=== PATIENT | male | born 1990 | race Two or more races ===

== ENCOUNTER 2021-09-10 23:48 | Emergency (ER) | payer OTHER, SELFPAY ==
[2021-09-11] MEDS ORDERED: Sodium Chloride 0.9% 1,000 ML ONE (00:56)
[2021-09-11 01:13] LABS: #Eosinphils 0.1 thou/uL (0.0-0.7); #Lymphocytes 2.2 thou/uL (1.20-3.40); #Monocytes 0.5 thou/uL (0.11-0.59); #Neutrophils 2.8 thou/uL (1.40-6.50); %Basophils 0.8 % (0.0-1.0); %Eosinophils 0.9 % (0.0-10.0); %Lymphocytes 38.7 % (21.0-51.0); %Monocytes 9.7 % (0.0-10.0); %Neutrophils 49.9 % (42.0-75.0); Hemoglobin 16.2 g/dL (14.0-18.0); Mean Corpuscular HGB CONC 32.5 g/dL (32.0-36.0); Mean Corpuscular Hemoglobin 30.1 pg (27.0-31.0); Mean Corpuscular Volume 92.6 fL (78.0-98.0); Mean Platelet Volume 8.3 fL (7.4-10.4); Platelet Count 311 thou/uL (130-400); RBC Distribution Width 11.7 % (11.5-14.5); White Blood Cell (WBC) Count 5.6 thou/uL (4.8-10.8)
[2021-09-11 01:26] LABS: INR-International Normal Ratio 0.9; Prothrombin Time 12.6 sec (12.0-14.7)
[2021-09-11 01:27] LABS: PTT 33.4 sec (22.9-36.1)
[2021-09-11 01:32] LABS: ALT (SGPT) 25 U/L (8-55); AST (SGOT) 16 U/L (5-34); Albumin 4.5 g/dL (3.5-5.0); Alkaline Phosphatase 58 U/L (40-110); Anion Gap 16 mmol/L (10-20); BUN (Urea Nitrogen) 10 mg/dL (8.9-20.6); Bilirubin, Total 0.5 mg/dL (0.2-1.2); CK (CPK) 69 U/L (30-200); Calc. Creatinine Clearance 0 mL/min (70-130); Carbon Dioxide 23 mmol/L (22-29); Chloride 106 mmol/L (98-107); Globulin 3.3 g/dL (2.4-3.5); Glucose 108 mg/dL (70-105); Potassium 3.6 mmol/L (3.5-5.1); Protein, Total 7.8 g/dL (6.0-8.3); Sodium 141 mmol/L (136-145)
[2021-09-11] MEDS ORDERED: Boostrix 0.5 ML (Tdap) VIAL ONE (02:54)
[2021-09-11] MEDS ORDERED: Crotalidae Polyvalent Antivenin 1 GM VIAL ONE (04:08)
[2021-09-11] MEDS ORDERED: Sodium Chloride 0.9% 250 ML 250 ML ONE (04:44)
[2021-09-11] MEDS ORDERED: Morphine 4 MG/ML VIAL ONE (05:34)
[2021-09-11] MEDS ORDERED: Ondansetron PF 4 MG/2 ML Vial ONE (05:34)
[2021-09-11 05:46] LABS: SARS-CoV-2 NAA Rapid Test Not Detected (NotDetected)
== END 2021-09-11 05:56 | disposition short-term general hospital (02) ==
LOC: NAV ERS 23:48
DX: M79.672 Pain in left foot (principal); M79.89 Other specified soft tissue disorders; W57.XXXA Bitten or stung by nonvenomous insect and other nonvenomous arthropods, initial encounter; Y93.01 Activity, walking, marching and hiking; Y92.007 Garden or yard of unspecified non-institutional (private) residence as the place of occurrence of the external cause; Z23 Encounter for immunization; Z20.822 Contact with and (suspected) exposure to COVID-19
CPT/HCPCS: 80053; 82550; 85025; 85384; 85610; 85730; 90471; 90715; 94760; 96365; 96375; J0840; J2270; J2405; J7050; U0002